=== PATIENT | female | born 1960 | race American Indian/Alaskan Native ===

== ENCOUNTER 2016-11-08 14:46 | Emergency (ER) | payer MEDICAID ==
--- NOTE | 2016-11-08 15:03 | Emergency Department Report ---
HPI - General Time Seen by Provider: 11/08/16 14:57 - HPI HPI: [facility] The patient is a 56-year-old female presented with a chief complaint cardiac arrest. Per EMS the patient was found unresponsive approximately 5 minutes prior to EMS arrival. EMS states they arrived on scene at 14:15 the patient unresponsive and asystolic. ACLS was initiated. Upon arrival to the ED the patient was intubated by myself and ACLS protocols continued without return of spontaneous circulation Location: Cardiovascular system Duration: [see above] Quality: aSystole Severity: Severe Modifying factors: [see above] Context: [see above] Mode of transportation: [not driving] ED Past Medical Hx - Past Medical History Previous Medical History?: No Hx of Cancer: Yes - Family History Family history: no significant - Social History Smoking Status: Unknown if ever smoked Substance Use Type: None - Medications Home Medications: Home Medications Medication Instructions Recorded Confirmed Last Taken Type FLUoxetine [PROzac] 1 PO 07/30/16 Unknown History Ibuprofen [Motrin 800 MG tab] 800 mg PO Q8HR PRN #20 tablet 07/30/16 Unknown Rx Oxycodone HCl/Acetaminophen 1 each PO Q6HR PRN #30 tablet 07/30/16 Unknown Rx [Percocet 10/325 mg] Sulfamethoxazole/Trimethoprim 1 each PO BID #20 tablet 07/30/16 Unknown Rx [Bactrim DS TAB] ED Review of Systems ROS: Stated complaint: CARDIAC ARREST Other details as noted in HPI Comment: Unobtainable due to pts medical conditions Physical Exam - Physical Exam Physical Exam: GENERAL: The patient is a thin female unresponsive on stretcher receiving chest compressions. Oral pharyngeal airway in place HEENT: Normocephalic. NECK: Trachea midline CHEST/LUNGS: No spontaneous respirations. HEART/CARDIOVASCULAR: No heart sounds. Asystole on monitor ABDOMEN: Abdomen is soft SKIN: There is no diaphoresis. NEURO: GCS 3T MUSCULOSKELETAL:There is no evidence of acute injury. ED Medical Decision Making - Differential Diagnosis cardiac arrest Critical care attestation.: If time is entered above; I have spent that time in minutes in the direct care of this critically ill patient, excluding procedure time. ED Disposition Clinical Impression: Cardiac arrest Disposition: MEDICAL FACILITY Is pt being admited?: No Does the pt Need Aspirin: No Condition: Poor Time of Disposition: 14:58 (patient ) Blank Doc - Documentation Documentation: The patient was intubated via orotracheal route using a 7.0 mm endotracheal tube. Rapid sequence induction was not used. Positioning was confirmed using auscultation .
== END 2016-11-08 17:22 ==
LOC: ED 14:46
DX: I46.9 Cardiac arrest, cause unspecified (principal)